=== PATIENT | male | born 1965 | race African-American/Black ===

== ENCOUNTER 2019-03-07 18:40 | Emergency (ER) | payer OTHER ==
[2019-03-07 18:45] VITALS: BP 137/87
[2019-03-07] MEDS ORDERED: KETOROLAC TROMETHAMINE 60 MG/2 ML SDV IM ONE (19:29)
[2019-03-07] MEDS ORDERED: LIDOCAINE 2% VISCOUS SOLN 20 ML UDCUP PO ONE (19:29)
--- NOTE | 2019-03-07 19:31 | ER Document Report ---
ED Medical Screen (RME) - General Chief Complaint: Jaw Pain Stated Complaint: MOUTH PAIN Time Seen by Provider: 03/07/19 19:26 Mode of Arrival: Ambulatory Information source: Patient Notes: 53-year-old male presented to ED for complaint of dental pain to the right lower jaw. It is mildly swollen around the gums. I have spoken with another provider who will be examined to see if that needs to be I&D. I have treated him with some Toradol and some viscous lidocaine for the mouth. Patient is alert oriented respirations regular and unlabored speaking in full sentences. He does smoke 1/2 pack a day drinks daily and does not have any other medical history. I have greeted and performed a rapid initial assessment of this patient. A comprehensive ED assessment and evaluation of the patient, analysis of test results and completion of medical decision making process will be conducted by an additional ED providers. Past Medical History - Social History Frequency of alcohol use: Heavy Physical Exam - Vital signs Vitals: Temp Pulse Resp BP Pulse Ox 98.3 F 72 16 137/87 H 100 03/07/19 18:44 03/07/19 18:44 03/07/19 18:44 03/07/19 18:44 03/07/19 18:44 Course - Vital Signs Vital signs: Temp Pulse Resp BP Pulse Ox 98.3 F 72 16 137/87 H 100 03/07/19 18:44 03/07/19 18:44 03/07/19 18:44 03/07/19 18:44 03/07/19 18:44
[2019-03-07] MEDS ORDERED: PENICILLIN V POTASSIUM 500 MG TABLET PO ONE (21:23)
--- NOTE | 2019-03-07 21:23 | ER Document Report ---
HPI - HPI Time Seen by Provider: 03/07/19 19:26 Pain Level: 5 Context: Patient is a 53-year-old male who presents to the emergency department with a chief complaint of right upper dental pain. Patient reports this is been present for about 1 day. Patient reports he does have poor dentition and multiple broken teeth. Patient also reports having some right sided facial swelling. Patient denies fever. Patient denies difficulty swallowing. Patient states he has had a dental infection before and was given oral antibiotics in which she did tolerate well. Past Medical History - General Information source: Patient - Social History Smoking Status: Current Every Day Smoker Frequency of alcohol use: Heavy Lives with: Alone Family History: None Patient has suicidal ideation: No Patient has homicidal ideation: No - Past Medical History Cardiac Medical History: Reports: None Pulmonary Medical History: Reports: None EENT Medical History: Reports: None Neurological Medical History: Reports: None Endocrine Medical History: Reports: None Renal/ Medical History: Reports: None Malignancy Medical History: Reports None GI Medical History: Reports: None Musculoskeletal Medical History: Reports None Skin Medical History: Reports None Psychiatric Medical History: Reports: None Traumatic Medical History: Reports: None Infectious Medical History: Reports: None Vertical Provider Document - CONSTITUTIONAL Agree With Documented VS: Yes Exam Limitations: No Limitations General Appearance: No Apparent Distress - HEENT HEENT: Atraumatic, Normocephalic, PERRLA Mouth Diagram: 1 - Point tenderness to these teeth. I palpated the whole right and left side of the patient's mouth without any obvious abscess. Patient has poor dentation. Notes: There is no significant facial edema. - NECK Neck: Normal Inspection - RESPIRATORY Respiratory: Breath Sounds Normal, No Respiratory Distress - CARDIOVASCULAR Cardiovascular: Regular Rate, Regular Rhythm - GI/ABDOMEN Gastrointestinal: Abdomen Soft, Abdomen Non-Tender - NEURO Level of Consciousness: Awake, Alert, Appropriate Course - Vital Signs Vital signs: Temp Pulse Resp BP Pulse Ox 98.3 F 72 16 137/87 H 100 03/07/19 18:44 03/07/19 18:44 03/07/19 18:44 03/07/19 18:44 03/07/19 18:44 Discharge - Discharge Clinical Impression: Dental infection Condition: Stable Disposition: HOME, SELF-CARE Additional Instructions: Today you are seen in the emergency department for right upper dental pain. It does appear that you have an infection. At this time there is not any area consistent with an abscess that needs to be cut or drained. You do need to take your oral antibiotics twice a day for the next 10 days. I will refer you to the [facility]. Please call them to make an appointment. If you develop high fever with chills, worsening pain, increasing swelling to your face please seek medical attention. Dental Infection or Abscess You have an infection, perhaps an abscess (pus formation) of the gum around one of your teeth, which is probably decayed. If there is an abscess, it may d rain on its own or it may need to be opened or lanced. Severe swelling or drainage around a tooth usually means a deep dental abscess which usually requires evaluation and treatment by a dentist or oral surgeon. Antibiotics may be prescribed while awaiting dental treatment. If you develop high fever with chills, worsening pain, or increasing swelling in the area, see a dentist or oral surgeon immediately or return to the Emergency Department immediately. Prescriptions: Penicillin V Potassium [Penicillin Vk 500 mg Tablet] 500 mg PO BID #20 tablet Referrals: [facility] [Provider Group] - Follow up as needed
== END 2019-03-07 21:34 | disposition home or self-care (01) ==
LOC: ER 18:40
DX: K04.7 Periapical abscess without sinus (principal); K08.89 Other specified disorders of teeth and supporting structures; F17.200 Nicotine dependence, unspecified, uncomplicated
CPT/HCPCS: 99282; 96372; J1885; J3490